=== PATIENT | female | born 1960 | race Caucasian/White ===

== ENCOUNTER 2022-11-07 09:08 | Day surgery (SDC) | payer OTHER ==
[~2022-11-07] VITALS: Ht 160 cm; Wt 78.5 kg
[2022-11-07] MEDS ORDERED: fentaNYL citrate 0.05 MG/ML VIAL ONE (10:27)
[2022-11-07] MEDS ORDERED: MIDAZOLAM 5 MG/5 ML VIAL ONE (10:28)
[2022-11-07] MEDS ORDERED: LIDOCAINE 2% 100 MG/5 ML UJET TP ONE (10:28)
[2022-11-07] MEDS ORDERED: MIDAZOLAM 2 MG/2 ML VIAL IVP ONE (13:00)
[2022-11-07] MEDS ORDERED: fentaNYL citrate 0.05 MG/ML VIAL IVP ONE (13:00)
== END 2022-11-07 12:00 | disposition home or self-care (01) ==
LOC: MOR 09:08 → MMU 09:09 → MOR 12:00
PROVIDERS: ATTEND Internal Medicine Gastroenterology
DX: Z12.11 Encounter for screening for malignant neoplasm of colon (principal); K63.5 Polyp of colon; K21.00 Gastro-esophageal reflux disease with esophagitis, without bleeding; I10 Essential (primary) hypertension; G47.30 Sleep apnea, unspecified; Z99.89 Dependence on other enabling machines and devices; F41.9 Anxiety disorder, unspecified; Z90.49 Acquired absence of other specified parts of digestive tract; K29.70 Gastritis, unspecified, without bleeding; K44.9 Diaphragmatic hernia without obstruction or gangrene; Z79.899 Other long term (current) drug therapy
CPT/HCPCS: 36415; 43239; 45385; 86677; J2250; J3010